=== PATIENT | female | born 1995 | race American Indian/Alaskan Native ===

== ENCOUNTER 2020-05-29 02:24 | Emergency (ER) | payer MEDICAID ==
[2020-05-29] MEDS ORDERED: FAMOTIDINE 20 MG TAB PO ONE (07:19)
[2020-05-29] MEDS ORDERED: DICYCLOMINE 20 MG/2 ML INJ IM ONE (07:19)
[2020-05-29] MEDS ORDERED: LIDOCAINE VISCOUS 2% 15 ML ORAL LIQD MM ONE (07:20)
--- NOTE | 2020-05-29 07:54 | Emergency Department Report ---
ED Chest Pain HPI - General Chief Complaint: Chest Pain Stated Complaint: CHEST PAIN Time Seen by Provider: 05/29/20 07:17 Source: patient Mode of arrival: Ambulatory Limitations: No Limitations - History of Present Illness Initial Comments: This is a 25-year-old female that is 13 weeks nontoxic, well nourished in appearance, no acute signs of distress presents to the ED with c/o of intermittent epigastric pain. Patient denies any radiation of pain. Patient describes pain as burning sensation with worse at laying flat. Patient denies any upper respiratory symptoms. Patient denies any shortness of breath, hemoptysis, fever, chills, nausea, vomiting, headache, stiff neck, numbness, tingling, abdominal pain. Patient denies pleuritic chest pain. Patient denies any recent travels or long car rides. Patient denies any recent surgeries or any sick contacts. Patient denies any drug allergies. Patient denies any vaginal bleeding, pelvic pain or abdominal pain. MD Complaint: other (Epigastric pain) -: days(s) Pain Location: epigastric Pain Radiation: none Severity: mild Severity scale (0 -10): 3 Quality: other (Burning sensation) Consistency: intermittent Improves With: nothing Worsens With: supine re: denies: nausea, vomting, diaphoresis, dyspnea, sense of impending doom Other Symptoms: denies: cough, rash, acid taste in mouth, palpitations, burping Treatments Prior to Arrival: none Aspirin use within the Past 7 Days: (0) No - Related Data On Oral Contraceptives: No Previous Rx's Medication Instructions Recorded Last Taken Type Famotidine [Pepcid] 20 mg PO DAILY PRN #12 tablet 05/29/20 Unknown Rx Allergies Allergy/AdvReac Type Severity Reaction Status Date / Time No Known Allergies Allergy Unverified 05/29/20 02:37 Heart Score - HEART Score History: Slightly suspicious EKG: Normal Age: < 45 Risk factors: No known risk factors Troponin: < normal limit HEART Score: 0 ED Review of Systems ROS: Stated complaint: CHEST PAIN Other details as noted in HPI Constitutional: denies: chills, fever Eyes: denies: eye pain, eye discharge, vision change ENT: denies: ear pain, throat pain Respiratory: denies: cough, shortness of breath, wheezing Cardiovascular: chest pain (Epigastric pain). denies: palpitations Endocrine: no symptoms reported Gastrointestinal: denies: abdominal pain, nausea, vomiting, diarrhea Genitourinary: denies: urgency, dysuria, discharge Musculoskeletal: denies: back pain, joint swelling, arthralgia Skin: denies: rash, lesions Neurological: denies: headache, weakness, paresthesias Psychiatric: denies: anxiety, depression Hematological/Lymphatic: denies: easy bleeding, easy bruising ED Past Medical Hx - Past Medical History Previous Medical History?: No - Surgical History Past Surgical History?: No - Social History Smoking Status: Never Smoker Substance Use Type: None - Medications Home Medications: Home Medications Medication Instructions Recorded Confirmed Last Taken Type Famotidine [Pepcid] 20 mg PO DAILY PRN #12 tablet 05/29/20 Unknown Rx ED Physical Exam - General Limitations: No Limitations General appearance: alert, in no apparent distress - Head Head exam: Present: atraumatic, normocephalic - Eye Eye exam: Present: normal appearance - Neck Neck exam: Present: normal inspection, full ROM. Absent: tenderness, meningismus, lymphadenopathy - Respiratory Respiratory exam: Present: normal lung sounds bilaterally. Absent: respiratory distress, wheezes, rales, rhonchi, stridor, chest wall tenderness, accessory muscle use, decreased breath sounds, prolonged expiratory - Cardiovascular Cardiovascular Exam: Present: regular rate, normal rhythm, normal heart sounds. Absent: bradycardia, tachycardia, irregular rhythm, systolic murmur, diastolic murmur, rubs, gallop - GI/Abdominal GI/Abdominal exam: Present: soft, normal bowel sounds. Absent: distended, tenderness, guarding, rebound, rigid, diminished bowel sounds - Extremities Exam Extremities exam: Present: normal inspection, full ROM - Back Exam Back exam: Present: normal inspection, full ROM. Absent: tenderness, CVA tenderness (R), CVA tenderness (L), muscle spasm, paraspinal tenderness, vertebral tenderness, rash noted - Neurological Exam Neurological exam: Present: alert, oriented X3, normal gait - Psychiatric Psychiatric exam: Present: normal affect, normal mood - Skin Skin exam: Present: warm, dry, intact, normal color. Absent: rash ED Course Vital Signs 05/29/20 02:33 Temperature 99.0 F Pulse Rate 72 Respiratory 18 Rate Blood Pressure 113/51 O2 Sat by Pulse 99 Oximetry - Reevaluation(s) Reevaluation #1: 05/29/20 07:36 Patient is speaking in full sentences with no signs of distress noted. JOSEFINA score - Josefina Score Age > 65: (0) No Aspirin use within the Past 7 Days: (0) No 3 or more CAD Risk Factors: (0) No 2 or more Angina events in past 24 hrs: (0) No Known CAD with more than 50% Stenosis: (0) No Elevated Cardiac Markers: (0) No ST Deviation Greater than 0.5mm: (0) No JOSEFINA Score: 0 ED Medical Decision Making - Lab Data Result diagrams: 05/29/20 08:02 05/29/20 08:02 Lab Results 05/29/20 05/29/20 05/29/20 Range/Units 08:02 08:02 08:02 WBC 8.1 (4.5-11.0) K/mm3 RBC 3.41 L (3.65-5.03) M/mm3 Hgb 11.0 (10.1-14.3) gm/dl Hct 31.2 (30.3-42.9) % MCV 92 (79-97) fl MCH 32 (28-32) pg MCHC 35 H (30-34) % RDW 13.4 (13.2-15.2) % Plt Count 187 (140-440) K/mm3 Lymph % (Auto) 9.1 L (13.4-35.0) % [place] % (Auto) 3.9 (0.0-7.3) % Eos % (Auto) 0.1 (0.0-4.3) % Baso % (Auto) 0.1 (0.0-1.8) % Lymph # 0.7 L (1.2-5.4) K/mm3 [place] # 0.3 (0.0-0.8) K/mm3 Eos # 0.0 (0.0-0.4) K/mm3 Baso # 0.0 (0.0-0.1) K/mm3 Seg Neutrophils % 86.8 H (40.0-70.0) % Seg Neutrophils # 7.0 (1.8-7.7) K/mm3 Sodium 137 (137-145) mmol/L Potassium 3.7 (3.6-5.0) mmol/L Chloride 101.6 (98-107) mmol/L Carbon Dioxide 24 (22-30) mmol/L Anion Gap 15 mmol/L BUN 6 L (7-17) mg/dL Creatinine 0.5 L (0.7-1.2) mg/dL Estimated GFR > 60 ml/min BUN/Creatinine Ratio 12 % Glucose 110 H (65-100) mg/dL Calcium 10.7 H (8.4-10.2) mg/dL Total Bilirubin 0.80 (0.1-1.2) mg/dL AST 256 H (5-40) units/L ALT 93 H (7-56) units/L Alkaline Phosphatase 55 (35-129) units/L Troponin T < 0.010 (0.00-0.029) ng/mL Total Protein 6.9 (6.3-8.2) g/dL Albumin 4.2 (3.9-5) g/dL Albumin/Globulin Ratio 1.6 % HCG, Quant 90285 H (0-4) mIU/mL - EKG Data 05/29/20 07:36 Normal sinus rhythm at [address] or T wave abnormalities. Reviewed and signed by Dr. Campbell. - Medical Decision Making This is a 25-year-old female that presents with GERD. Patient is stable and was examined by me. JOSEFINA and HEART score 0 pints. Wells criteria for DVT/SVT/PE 0 points. EKG normal sinus rhythm with no significant changes in ST. Labs within normal limits. Negative troponin. Patient received medical treatment in the ED which she stated her symptoms are resolved and subsided. I will discharge patient with pepcid. Patient was instructed to Follow-up with a primary care/customer solutions architect doctor in 3-5 days or if symptoms worsen and continue return to emergency room as soon as possible. At time of discharge, the patient does not seem toxic or ill in appearance. No acute signs of distress noted. Patient agrees to discharge treatment plan of care. No further questions noted by the patient. Critical care attestation.: If time is entered above; I have spent that time in minutes in the direct care of this critically ill patient, excluding procedure time. ED Disposition Clinical Impression: GERD (gastroesophageal reflux disease) Qualifiers: Esophagitis presence: without esophagitis Qualified Code(s): K21.9 - Gastro- esophageal reflux disease without esophagitis Disposition: TO HOME OR SELFCARE Is pt being admited?: No Does the pt Need Aspirin: No Condition: Stable Instructions: Gastroesophageal Reflux Disease (ED) Additional Instructions: Follow-up with a primary care and customer solutions architect doctor in 2 days or if symptoms worsen and continue return to emergency room as soon as possible. Prescriptions: Famotidine [Pepcid] 20 mg PO DAILY PRN #12 tablet PRN Reason: GERD Referrals: PRIMARY CARE, [Primary Care Provider] - 3-5 Days ENMANUEL DAILEY MD [Staff Physician] - 05/30/20 VENANCIO SINGER MD [Staff Physician] - 05/30/20 Forms: Work/School Release Form(ED)
[2020-05-29 08:25] LABS: Basophils % (Auto) 0.1 % (0.0-1.8); Eosinophils % (Auto) 0.1 % (0.0-4.3); Hematocrit 31.2 % (30.3-42.9); Lymphocytes # (Auto) 0.7 K/mm3 (1.2-5.4); Lymphocytes % (Auto) 9.1 % (13.4-35.0); Mean Corpuscular HGB Conc 35 % (30-34); Mean Corpuscular Volume 92 fl (79-97); Monocytes # (Auto) 0.3 K/mm3 (0.0-0.8); Monocytes % (Auto) 3.9 % (0.0-7.3); Platelet Count 187 K/mm3 (140-440); Red Blood Count 3.41 M/mm3 (3.65-5.03); Red Cell Distribution Width 13.4 % (13.2-15.2)
[2020-05-29 08:49] LABS: Alanine Aminotransferase 93 units/L (7-56); Albumin 4.2 g/dL (3.9-5); BUN/Creatinine Ratio 12; Blood Urea Nitrogen 6 mg/dL (7-17); Calcium 10.7 mg/dL (8.4-10.2); Hemolysis Index 0
[2020-05-29 09:40] VITALS: BP 104/53
== END 2020-05-29 09:00 | disposition home or self-care (01) ==
LOC: ED 02:24
DX: K21.9 Gastro-esophageal reflux disease without esophagitis (principal); Z79.899 Other long term (current) drug therapy
CPT/HCPCS: 36415; 80053; 84484; 84702; 85025; 93005; 96372; 99283; J0500

== ENCOUNTER 2020-11-25 03:47 | Inpatient (IN) | payer MEDICAID ==
[2020-11-25] MEDS ORDERED: LACTATED RINGERS 1,000 ML ONE ×2 (04:04→04:37)
[2020-11-25] MEDS ORDERED: OXYTOCIN DRIP 30,000 MILLIUNITS/500 ML BAG IV ONE (04:14)
[2020-11-25] MEDS ORDERED: LIDOCAINE (2%) 20 MG/1 ML VIAL 20 ML MDV INFILTRATI ONE ×2 (04:14→04:41)
[2020-11-25] MEDS ORDERED: MINERAL OIL 30 ML ORAL LIQD ONE (04:14)
[2020-11-25] MEDS ORDERED: fentaNYL 100 MCG/2 ML INJ ONE (04:40)
[2020-11-25] MEDS ORDERED: MINERAL OIL 30 ML ORAL LIQD PO PRN (04:41)
[2020-11-25] MEDS ORDERED: NALOXONE 0.4 MG/1 ML INJ IV PRN (04:41)
[2020-11-25] MEDS ORDERED: TERBUTALINE 1 MG/1 ML INJ SUB-Q PRN (04:41)
[2020-11-25] MEDS ORDERED: AMPICILLIN/NS 2 GM/100 ML 2 GM/100 ML BAG IV ONE (04:41)
[2020-11-25] MEDS ORDERED: fentaNYL 100 MCG/2 ML INJ IV PRN (04:41)
[2020-11-25] MEDS ORDERED: ONDANSETRON 4 MG/2 ML INJ IV PRN ×2 (04:41→11:37)
[2020-11-25] MEDS ORDERED: METHYLERGONOVINE MALEATE 0.2 MG/ML VIAL IM PRN (04:41)
[2020-11-25] MEDS ORDERED: miSOPROStol 200 MCG TAB PR PRN (04:41)
[2020-11-25] MEDS ORDERED: BUTORPHANOL 2 MG/1 ML INJ IV PRN (04:41)
[2020-11-25] MEDS ORDERED: LACTATED RINGERS 1,000 ML IV SCH (04:45)
[2020-11-25] MEDS ORDERED: fentaNYL 100 MCG/2 ML INJ IV ONE (04:48)
--- NOTE | 2020-11-25 04:54 | History and Physical Report ---
History of Present Illness Date of examination: 11/25/20 Chief complaint: contractions History of present illness: Pt is a 25 year old -Martiniquais female RICHY 11/20/20 art 40w5d who presents via EMS secondary to regular painful contractions and cervical dilation of 7 cm. She experienced spontaneous rupture of membranes while in triage. She denies vaginal bleeding. She has had care at [facility] since 13 wks that has been uncomplicated. She is GBS negative. Past History Past Medical History: GERD Past Surgical History: no surgical history Family/Genetic History: none Social history: no significant social history - Obstetrical History Expected Date of Delivery: 11/20/20 Actual Gestation: 40 Week(s) 5 Day(s) : 4 Para: 3 Hx # Term Pregnancies: 3 Number of Pregnancies: 0 Spontaneous Abortions: 0 Induced : 0 Number of Living Children: 3 Medications and Allergies Allergies Allergy/AdvReac Type Severity Reaction Status Date / Time No Known Allergies Allergy Verified 11/25/20 04:10 Home Medications Medication Instructions Recorded Confirmed Last Taken Type Famotidine [Pepcid] 20 mg PO DAILY PRN #12 tablet 05/29/20 11/05/20 Rx Daily Combo Pack 120 mg PO DAILY 11/25/20 11/25/20 11/24/20 09:00 History Active Meds: Active Medications Butorphanol Tartrate (Butorphanol 2 Mg/1 Ml Inj) 2 mg IV Q2H PRN PRN Reason: Pain , Severe (7-10) Ephedrine Sulfate (Ephedrine Sulfate 50 Mg/1 Ml Inj) 10 mg IV Q2M PRN PRN Reason: Hypotension Fentanyl (Fentanyl 100 Mcg/2 Ml Inj) 100 mcg IV Q2H PRN PRN Reason: Pain,Severe (7-10) LABOR PAIN Fentanyl (Fentanyl 100 Mcg/2 Ml Inj) 50 mcg IV ONCE ONE Stop: 11/25/20 04:49 Oxytocin/Sodium Chloride (Pitocin/Ns 30 Unit/500ml) 30 units in 500 mls @ 2 mls/hr IV TITR AIYANA; Protocol Lactated Ringer's (Lactated Ringers) 1,000 mls @ 125 mls/hr IV DIRECT AIYANA Oxytocin/Sodium Chloride (Pitocin/Ns 30 Unit/500ml) 30 units in 500 mls @ 40 mls/hr IV TITR AIYANA; Protocol Ampicillin Sodium (Ampicillin/Ns 2 Gm/100 Ml) 2 gm in 100 mls @ 100 mls/hr IV ONCE ONE; Protocol Stop: 11/25/20 05:40 Ampicillin Sodium (Ampicillin/Ns 1 Gm/50 Ml) 1 gm in 50 mls @ 100 mls/hr IV Q4H [facility]; Protocol Methylergonovine Maleate (Methylergonovine Maleate 0.2 Mg/Ml Vial) 0.2 mg IM ONCE PRN PRN Reason: Uterine Bleeding Mineral Oil (Mineral Oil 30 Ml Oral Liqd) 30 ml PO QHS PRN PRN Reason: Constipation Misoprostol (Misoprostol 200 Mcg Tab) 800 mcg IN ONCE PRN PRN Reason: Uterine Bleeding Naloxone HCl (Naloxone 0.4 Mg/1 Ml Inj) 0.1 mg IV Q2MIN PRN PRN Reason: Res Rate </= 8 or 02 SAT < 92% Ondansetron HCl (Ondansetron 4 Mg/2 Ml Inj) 4 mg IV Q8H PRN PRN Reason: Nausea And Vomiting Terbutaline Sulfate (Terbutaline 1 Mg/1 Ml Inj) 0.25 mg SUB-Q ONCE PRN PRN Reason: Hyperstimulation/Hypertonicity Review of Systems All systems: negative - Vital Signs Vital signs: Vital Signs Pulse Pulse Ox 90 100 11/25/20 03:58 11/25/20 03:58 Temp Pulse Resp BP Pulse Ox 86 131/67 88 11/25/20 04:47 11/25/20 03:59 11/25/20 04:47 - Physical Exam Breasts: Positive: deferred Abdomen: Positive: soft (gravid ) Uterus: Positive: enlarged (gravid ) Extremities: Positive: normal - Obstetrical FHR: category 2 Uterine Contraction Monitor Mode: External Cervical Dilatation: 8 Cervical Effacement Percentage: 80 station: -1 Uterine Contraction Pattern: Regular Uterine Tone Measurement Phase: Resting Uterine Contraction Intensity: Strong/Firm Results All other labs normal. Assessment and Plan A: IUP at 40w5d Active Labor SROM GBS Negative P: Admit to labor and delivery Routine intrapartum care Closely monitor maternal and status
[2020-11-25] MEDS ORDERED: OXYTOCIN DRIP 30 UNITS/500 ML BAG IV SCH ×3 (05:00→11:37)
[2020-11-25] MEDS: ePHEDrine SULFATE 50 MG/1 ML INJ IV PRN ×2 (05:25→05:40)
--- NOTE | 2020-11-25 05:32 | Anesthesia Consultation ---
Anesthesia Consult and Med Hx Date of service: 11/25/20 - Airway Anesthetic Teeth Evaluation: Poor ROM Head & Neck: Adequate Mental/Hyoid Distance: Adequate Mallampati Class: Class II Intubation Access Assessment: Probably Good - Pulmonary Exam CTA: Yes - Cardiac Exam Cardiac Exam: RRR - Pre-Operative Health Status ASA Pre-Surgery Classification: ASA2 Proposed Anesthetic Plan: Epidural - Pulmonary Hx Smoking: No Hx Asthma: No Hx Respiratory Symptoms: No SOB: No COPD: No Hx Pneumonia: No Hx Sleep Apnea: No - Cardiovascular System Hx Hypertension: No Hx Coronary Artery Disease: No Hx Heart Attack/AMI: No Hx Angina: No Hx Percutaneous Transluminal Coronary Angioplasty (PTCA): No Hx Cardia Arrhythmia: No Hx Pacemaker: No Hx Internal Defibrillator: No Hx Valvular Heart Disease: No Hx Heart Murmur: No Hx Peripheral Vascular Disease: No - Central Nervous System Hx Neuromuscular Disorder: No Hx Seizures: No CVA: No Hx Back Pain: No Hx Psychiatric Problems: No - Gastrointestinal Hx Ulcer: No Hx Gastroesophageal Reflux Disease: Yes - Endocrine Hx Renal Disease: No Hx End Stage Renal Disease: No Hx Cirrhosis: No Hx Liver Disease: No Hx Insulin Dependent Diabetes: No Hx Non-Insulin Dependent Diabetes: No Hx Thyroid Disease: No Hx Hypothyroidism: No Hx Hyperthyroidism: No - Hematic Hx Anemia: No Hx Sickle Cell Disease: No - Other Systems Hx Alcohol Use: No Hx Substance Use: No Hx Cancer: No Hx Obesity: Yes
[2020-11-25] MEDS ORDERED: ePHEDrine SULFATE 50 MG/1 ML INJ IV PRN (05:34)
[2020-11-25] MEDS ORDERED: NALOXONE 2 MG/2 ML INJ IV PRN (05:34)
--- NOTE | 2020-11-25 05:34 | Progress Note ---
Labor Epidural - Labor Epidural Start Time: 05:07 Stop Time: 05:13 Performed by:: LINSEY RODRIGEZ Procedure: Patient is requesting combined spinal epidural for labor and pain. H&P, labs were reviewed. All questions and concerns were answered. Informed consent was obtained. Timeout performed. Patient in sitting position on side of bed. Sterile prep and drape was performed. 3 mL 1% lidocaine skin wheal at L [3]-L [4]. 18-gauge Tuohy epidural needle advanced to [id number] using air technique, [6]. 27-gauge spinal needle advanced, positive free-flowing CSF. Spinal dose of [Precdex 5mcg]. Epidural catheter advanced to [10] cm. [negative] Aspiration, [negative] test dose. Sterile dressing applied. Patient tolerated procedure well.
[2020-11-25] MEDS ORDERED: fentaNYL-BUPIV 2 MCG/ML-0.125% 200 MCG/100 ML BAG EPIDURAL SCH (06:00)
[2020-11-25 06:21] LABS: Hemoglobin 12.2 gm/dl (10.1-14.3); Mean Corpuscular HGB Conc 35 % (30-34); Mean Corpuscular Volume 93 fl (79-97); Platelet Count 157 K/mm3 (140-440); Red Blood Count 3.77 M/mm3 (3.65-5.03); Red Cell Distribution Width 14.1 % (13.2-15.2)
--- NOTE | 2020-11-25 07:52 | Procedure Note ---
OB Delivery Note - Delivery Date of Delivery: 11/25/20 Surgeon: ЮЛИЯ WILLIAMSON Estimated blood loss: other (400 mL) - Vaginal Delivery presentation: vertex Delivery position: OA Intrapartum events: shoulder dystocia (30 seconds relieved by Daren and suprapubic pressure ), uterine atony Delivery induction: none Delivery monitor: external FHT, external uterine Route of delivery: Delivery placenta: spontaneous Episiotomy: none Delivery laceration: 2nd degree Delivery repair: vicryl Anesthesia: local, epidural - Infant A at 1 minute: 8 at 5 minutes: 9 Infant Gender: Male (3911g (8lb 10oz) @ 0731 am)
[2020-11-25] MEDS ORDERED: AMPICILLIN/NS 1 GM/50 ML 1 GM/50 ML BAG IV SCH (09:00)
[2020-11-25] MEDS ORDERED: HYDROcodone/ACETAMINOPHEN 5-325 MG TAB PO PRN (11:37)
[2020-11-25] MEDS ORDERED: BENZOCAINE/MENTHOL 20/0.5% TOP SPRAY 56 GM TP PRN (11:37)
[2020-11-25] MEDS ORDERED: WITCH HAZEL/ GLYCERIN PAD TP PRN (11:37)
[2020-11-25] MEDS ORDERED: LANOLIN/ZINC/DIMETHICONE (LANSINOH) 7 GM TP PRN ×2 (11:37)
[2020-11-25] MEDS ORDERED: diphenhydrAMINE 25 MG CAP PO PRN (11:37)
[2020-11-25] MEDS ORDERED: PROMETHAZINE 25 MG TAB PO PRN (11:37)
[2020-11-25] MEDS ORDERED: PROMETHAZINE 25 MG RECT SUPP PR PRN (11:37)
[2020-11-25] MEDS ORDERED: MAGNESIUM HYDROXIDE (MOM) ORAL LIQD UDC PO PRN (11:37)
[2020-11-25] MEDS: FERROUS SULFATE 325 MG TAB PO SCH ×2 (12:06→22:04)
[2020-11-25] MEDS: PRENATAL VIT27-FE FUMARATE-FOLIC ACID VIT TAB PO SCH (12:06)
[2020-11-25] MEDS: IBUPROFEN 600 MG TAB PO SCH ×2 (12:06→17:41)
--- NOTE | 2020-11-25 12:08 | Post Anesthesia Evaluation ---
- Post Anesthesia Evaluation Patient Participated: Yes Airway Patent: Yes Stable Respiratory Function: Yes Nausea/Vomiting: No Temp > 96.8F: Yes Pain Manageable: Yes Adequeate Hydration: Yes Anesthesia Complications: No Block Receding Appropriately: Yes Patient on Ventilator: No
[2020-11-25 20:23] LABS: Hemoglobin 11.9 gm/dl (10.1-14.3)
[2020-11-26] MEDS: IBUPROFEN 600 MG TAB PO SCH ×3 (00:26→12:28)
[2020-11-26] MEDS ORDERED: MEASLES, MUMPS & RUBELLA 12,500 UNIT/0.5 ML VACCINE SUB-Q ONE (07:53)
[2020-11-26] MEDS ORDERED: DIPHtheria,PERTUSSIS(ACELL),TETANUS VACCINE/PF 0.5 ML VIAL IM ONE (07:53)
--- NOTE | 2020-11-26 08:30 | Progress Note ---
Assessment and Plan A: 25 yo s/p complicated by shoulder dystocia VSS constipation P: Milk of magnesia today Discharge home today Subjective - Subjective Date of service: 11/26/20 Principal diagnosis: s/p Interval history: Pt is a 25 yo , PPD1 s/p complicated by shoulder dystocia. Patient reports: appetite normal, voiding normally, pain well controlled, flatus, ambulating normally, no bowel movement [place]: doing well, bottle feeding Objective - Vital Signs Latest vital signs: Vital Signs Temp Pulse Resp BP Pulse Ox 11/26/20 01:51 98.3 F 78 17 114/52 96 11/25/20 16:48 98.6 F 65 20 122/72 98 11/25/20 11:55 98.0 F 70 20 130/63 100 11/25/20 10:10 98.5 F 69 18 134/60 99 11/25/20 09:52 65 142/67 11/25/20 09:42 98.3 F 18 11/25/20 09:41 86 147/63 11/25/20 08:58 63 100 11/25/20 08:53 61 100 11/25/20 08:52 60 148/81 11/25/20 08:48 68 100 11/25/20 08:43 60 100 11/25/20 08:38 62 100 11/25/20 08:37 58 L 145/78 11/25/20 08:33 66 100 11/25/20 08:28 62 100 Intake and Output 11/25/20 11/26/20 11/26/20 23:59 07:59 15:59 Intake Total 240 Balance 240 Intake: Oral 240 Other: Total, Intake Amount 240 - Exam Breasts: Present: normal Abdomen: Present: normal appearance, soft. Absent: distention, tenderness, guarding Uterus: Present: normal, firm, fundal height below umbilicus Extremities: Present: normal
--- NOTE | 2020-11-26 08:46 | Discharge Summary ---
Providers - Providers Date of Admission: 11/25/20 04:41 Date of discharge: 11/26/20 Attending physician: ЮЛИЯ WILLIAMSON 11/25/20 11:37 Consult to [facility] [CONS] Routine Reason For Exam: assistance with , SNS Primary care physician: ЮЛИЯ WILLIAMSON Hospitalization Reason for admission: active labor, IUP at term Delivery: Procedure details: complicated by 30 second shoulder dystocia without complication. Episiotomy: none Laceration: 2nd degree Other procedures: none complications: none Discharge diagnosis: IUP at term delivered [place] baby: male Condition at discharge: Good Disposition: DC-01 TO HOME OR SELFCARE Plan - Discharge Medications Prescriptions: Ibuprofen [Motrin] 600 mg PO Q6H PRN #60 tablet PRN Reason: Pain - Provider Discharge Summary Activity: routine, no sex for 6 weeks, no heavy lifting 4 weeks, no strenuous exercise Diet: routine Instructions: routine Additional instructions: [] Smoking cessation referral if applicable(refer to patient education folder for contact #) [] Refer to [facility]'s [facility] Booklet Call your doctor immediately for: * Fever > 100.5 * Heavy vaginal bleeding ( >1 pad per hour) * Severe persistent headache * Shortness of breath * Reddened, hot, painful area to leg or breast * Drainage or odor from incision. * Keep incision clean and dry at all times and follow doctor's instructions regarding bathing/showering - Follow up plan Follow up: ЮЛИЯ WILLIAMSON MD [Primary Care Provider] - 14 Days (Please call [facility] to schedule appointment in 2-4 weeks.)
[2020-11-26] MEDS: PRENATAL VIT27-FE FUMARATE-FOLIC ACID VIT TAB PO SCH (10:26)
[2020-11-26] MEDS: FERROUS SULFATE 325 MG TAB PO SCH (10:26)
[2020-11-26 14:57] VITALS: BP 117/50
== END 2020-11-26 15:00 | disposition home or self-care (01) | DRG 775 ==
LOC: TRG 03:47 → APU 03:52 → LD 04:12 → TRG 04:41 → LD 04:41 → OB 11:33
PROVIDERS: ADMIT Obstetrics & Gynecology; ATTEND Obstetrics & Gynecology
PROC: 10E0XZZ Delivery of Products of Conception, External Approach (ICD-10-PCS; principal; 2020-11-25)
PROC: 3E0R3BZ Introduction of Anesthetic Agent into Spinal Canal, Percutaneous Approach (ICD-10-PCS; 2020-11-25)
PROC: 00HU33Z Insertion of Infusion Device into Spinal Canal, Percutaneous Approach (ICD-10-PCS; 2020-11-25)
PROC: 3E0234Z Introduction of Serum, Toxoid and Vaccine into Muscle, Percutaneous Approach (ICD-10-PCS; 2020-11-26)
PROC: 3E0134Z Introduction of Serum, Toxoid and Vaccine into Subcutaneous Tissue, Percutaneous Approach (ICD-10-PCS; 2020-11-26)
DX: O66.0 Obstructed labor due to shoulder dystocia (principal); O70.1 Second degree perineal laceration during delivery; Z3A.40 40 weeks gestation of pregnancy; Z37.0 Single live birth; K59.00 Constipation, unspecified; Z20.822 Contact with and (suspected) exposure to COVID-19
CPT/HCPCS: 36415; 59025; 85014; 85018; 85027; 86592; 86850; 86900; 86901; 88307; 96360; G0378; J2210; J2590; J7120; U0003